=== PATIENT | female | born 1955 | race Caucasian/White ===

== ENCOUNTER 2018-08-27 11:45 | Inpatient (IN) | payer MEDICARE ==
[2018-08-27] VITALS (16 sets, daily range): BP systolic 129–179; BP diastolic 37–84; Ht 170.2 cm; Wt 93.0 kg
[~2018-08-27] VITALS: Ht 170.2 cm; Wt 93.0 kg
--- NOTE | ~2018-08-27 | HEMODYNAMI ---
PATIENT:BRANDEN GIORDANO MEDICAL RECORD: [id number] : 57 LOCATION:[facility] ADMISSION DATE: 08/27/18 Generatedon:08/27/201815:25 Patient name: BRANDEN GIORDANO Patient #: [id number] SSN: D OB: 1955 Date of study: 08/27/2018 Page: Of Hemodynamic Procedure Report Patient Data Patient Demographics Procedure consent was obtained First Name: BRANDEN Gender: Female Last Name: PASQUALE : 1955 Patient #: [id number] Age: 63 year(s) Race: Unknown Additional ID: [id number] Contact details Address: [address] [place] [address] State: [place] City: [place] Zip code: [address] Admission Admission Data Admission Date: 08/27/2018 Admission Time: 11:45 Insurance Payor: Medicare Height (in.): 66.93 BSA: 2.03 (m2) Height (cm.): 170 BMI: 31.83 (kg/m2) Weight (lbs.): 202.83 Weight (kg.): 92 Procedure Procedure Types Cath Procedure Diagnostic Procedure LHC LH w/Coronaries w/Grafts PCI Procedure AMI/SVG/WATER TREATMENT PLANT OPERATOR PTCA or Stent SVG-BMS/DENVER Initial Peripheral Cath Diagnostic Procedure Janitor Cleaner Peripheral Procedures Spjck-Raipurn-Zwj-Off Procedure Description Procedure Date Procedure Date: 08/27/2018 Procedure Start Time: 14:37 Procedure End Time: 15:17 Procedure Staff Name Function Shade Mathur MD Performing Physician Tabatha Keita RT Monitor Supriya Rangel RT Scrub Catherine Daniels RN Nurse Suzette Moore RT Monitor Procedure Data Cath Procedure Fluoroscopy Diagnostic fluoroscopy Total fluoroscopy Time: 7 time: 7 min min Diagnostic fluoroscopy Total fluoroscopy dose: dose: 1146 mGy 1146 mGy Contrast Material Contrast Material Type Amount (ml) Isovue 300 184 Entry Location Entry Primary Successful Side Size Upsize Upsize Entry Closure Bailey ccessful Closure Location (Fr) 1 (Fr) 2 (Fr) Remarks Device Remarks Femoral Right 5 Fr 6 Fr artery Short Femoral Right 6 Fr Manual vein Short Compression Estimated blood loss: 10 ml Diagnostic catheters Device Type Used For End Catheter Placement MULTIPACK JL 4.0 5Fr Procedure catheter MULTIPACK 3DRC 5Fr Procedure catheter MULTIPACK Pigtail 5 Fr Procedure catheter Procedure Complications No complications Procedure Medications Medication Administration Route Dosage 0.9% NaCl I.V. 100 ml/hr Oxygen etCO2 Nasal cannula 2 l/min Lidocaine 2% added to field 20 Heparin Flush Bag added to field 2 bags (1000units/500ml NS) Versed I.V. 2 mg Fentanyl I.V. 50 mcg Heparin Bolus I.V. 5000 units Atropine I.V. 1 mg Atropine I.V. 1 mg Integrilin (Bolus I.V. 8.5 ml 2mg/ml) Cardene I.C. 1750 mcg Integrilin Drip I.V. drip 15 ml/hr (75mg/100ml) Hemodynamics Rest BSA: 2.03 (m2) O2 Consumption: Estimated: 203.5 (ml/min) O2 Consumption indexed: Estimated:100.25 (ml/min/m) Heart Rate: 86 (bpm) Pressure Samples Time Site Value (mmHg) Purpose Heart Use Rate(bpm) 14:49 LV 182/93,11 Snapshot 72 Gradients Valve Time Site Site Mean SEP/DFP Peak To Heart Use 1 2 (mmHg) (sec/min) Peak Rate (mmHg) (bpm) Aortic 14:49 LV AO 69 Snapshots Pre Cath Intra NCS Post Cath Vital Signs Time Heart Resp SPO2 etCO2 NIBP (mmHg) Rhythm Pain Sedation Rate (ipm) (%) (mmHg) Status Level (bpm) 14:32:57 84 14 100 24.2 206/97(157) NSR 0 (11) 10(A) , No pain 14:37:29 63 15 97 13.6 180/85(135) NSR 0 (11) 9(A) , No pain 14:41:53 63 13 98 24.8 167/89(139) NSR 0 (11) 9(A) , No pain 14:46:24 65 15 98 12.1 180/83(141) NSR 0 (11) 9(A) , No pain 14:50:56 66 13 99 43.2 187/80(146) NSR 0 (11) 9(A) , No pain 14:55:28 65 14 99 37.9 184/82(143) NSR 0 (11) 9(A) , No pain 14:59:51 66 13 99 9.1 161/76(137) NSR 0 (11) 9(A) , No pain 15:04:19 67 13 99 17.4 167/78(128) NSR 0 (11) 9(A) , No pain 15:08:49 99 11 98 37.1 104/50(83) NSR 0 (11) 9(A) , No pain 15:13:40 91 11 98 25 143/78(121) NSR 0 (11) 9(A) , No pain 15:17:58 93 15 98 42.4 163/85(116) NSR 0 (11) 10(A) , No pain Medications Time Medication Route Dose Verified Delivered Reason Notes Effectiveness by by 14:30:13 0.9% NaCl I.V. 100 Shade Catherine used for ml/hr [facility] procedure MD HARRIS 14:30:20 Oxygen etCO2 2 Shade Catherine used for Nasal l/min [facility] procedure cannula MD HARRIS 14:30:26 Lidocaine 2% added 20ml Shade Laguerre for local to vial [facility] anesthetic field MD VALLADARES 14:30:31 Heparin Flush added 2 Shade Camposory used for Bag to bags [facility] procedure (1000units/500ml field MD VALLADARES NS) 14:34:22 Versed I.V. 2 mg Shade Catherine for sedation [facility] Os[facility] Daniels MD, RN 14:34:30 Fentanyl I.V. 50 Shade Catherine for sedation [facility] [place] Daniels MD, RN 14:53:39 Heparin Bolus I.V. 5000 Shade Catherine for verif ied units [facility] anticoagulation with Dr. MD HARRIS [place] 15:04:19 Cardene I.C. 1750 Shade Laguerre for mcg [facility] Osvaldo baez MD, MD 15:06:27 Atropine I.V. 1 mg Shade Catherine used for [place] Jeremiah alfaro MD, RN 15:07:28 Atropine I.V. 1 mg Shade Bazziyla used for [facility] procedure MD HARRIS 15:08:48 Integrilin I.V. 8.5 Shade Catherine for waste d (Bolus 2mg/ml) ml St Osvaldo Daniels anticoagulation 1.5mL MD HARRIS 15:21:26 Integrilin Drip I.V. 15 Shade Alexander for (75mg/100ml) drip ml/hr [facility] Osvaldo Daniels antiplatelet RN therapy Procedure Log Time Note 14::24 Diagnostic Cath Status : Elective 14:22:43 Supriya Rangel RT(R) sent for patient. Start room use. 14:22:44 Time tracking: Regular hours (M-F 7:00 - 5:00) 14:22:50 Plan of Care:Hemodynamics will remain stable., Cardiac rhythm will remain stable., Comfort level will be maintained., Respiratory function will remain adequate., Patient/ family verbilizes understanding of procedure., Procedure tolerated without complication., Recovers from procedure without complications.. 14:24:12 Patient received from Pre/Post Procedure Room to CCL 1 Alert and oriented. Tansferred to table in Supine position. 14:24:13 Warm blankets applied, and cristhian hugger turned on for patient comfort. 14:24:14 Correct patient and procedure confirmed by team. 14:24:15 Signed procedure consent form obtained from patient. 14:24:16 ECG and BP/O2 sat monitors applied to patient. 14:26:28 Patient Height : 66.93 inches 14:26:33 Patient Weight : 202.83 lbs 14:26:43 Insurance Payor : Medicare 14:27:02 Baseline sample Acquired. 14:27:02 Vital chart was started 14:30:13 0.9% NaCl 100 ml/hr I.V. was administered by Catherine Daniels RN; used for procedure; 14:30:20 Oxygen 2 l/min etCO2 Nasal cannula was administered by Catherine Daniels RN; used for procedure; 14:30:26 Lidocaine 2% 20ml vial added to field was administered by Shade Mathur MD; for local anesthetic; 14:30:31 Heparin Flush Bag (1000units/500ml NS) 2 bags added to field was administered by Shade Mathur MD; used for procedure; 14:31:20 Rhythm: sinus rhythm 14:31:22 Baseline sample Acquired. 14:31:24 Full Disclosure recording started 14::29 H&P Date Dictated: 08/27/2018 Within 30 days and on chart., H&P Addendum completed by physician on day of procedure. (MUST COMPLETE FOR ALL OUTPATIENTS). 14:31:31 Pre-procedure instructions explained to patient. 14:31:31 Pre-op teaching completed and patient verbalized understanding. 14:31:32 Family in waiting room. 14:31:33 Patient NPO since Midnight. 14:31:36 Is the patient allergic to Iodine/contrast media? No. 14:31:37 Was the patient premedicated? No 14:31:37 Is patient on blood thinner?Yes 14:31:40 ACC The patient was administered the following blood thiners within the last 24 hours: ACCPlavix 14:31:42 Patient diabetic? No. 14:31:44 Previous problem with sedation/anesthesia? No ? 14:31:47 Snore? Yes 14:31:48 Sleep apnea? Yes 14:31:49 Deviated septum? No 14:31:49 Opens mouth fully? Yes 14:31:50 Sticks out tongue? Yes 14:31:54 Airway obstruction? No ? 14:31:56 Dentures? No ? 14:32:10 Patient pain scale 0/10 ?. 14:32:16 IV patent on arrival in left antecubital with 0.9% NaCl at [facility]. 14:32:18 Lab results completed and on chart. 14:32:28 Bilateral groins area was prepped with chlora-prep and draped in sterile fashion 14:32:29 Alarms reviewed by R. N. 14:32:29 Sharps counted by scrub and verified by R.N. 14:33:49 Pre procedure: right dorsailis pedis pulse 1+ Palpable, but thready & weak; easily obliterated 14:33:51 Pre procedure: left dorsailis pedis pulse 1+ Palpable, but thready & weak; easily obliterated 14:33:53 Physician arrived 14:33:53 --------ALL STOP TIME OUT------ 14:33:54 Final Timeout: patient, procedure, and site verified with staff and physician. All members of the team are in agreement. 14:33:57 Bilateral groins site verified by team. 14:34:03 Maximum allowable Isovue 300 dose 94ml. Physician notified. (300ml for normal creatinines. For patients with creatinine of 1.7 or higher multiply weight x 5 divided by creatinine.) 14:34:07 Fire Safety Assessment: A--An alcohol-based skin anteseptic being used preoperatively., C--Open oxygen or nitrous oxide is being used., D--An ESU, laser, or fiber-optic light is being used. 14:34:11 Physical assessment completed. ASA score P 2 - A patient with mild systemic disease as per Shade Mathur MD. 14:34:14 Sedation plan: IV Moderate Sedation Medication:Versed, Fentanyl 14:34:22 Versed 2 mg I.V. was administered by Catherine Daniels RN; for sedation; 14:34:30 Fentanyl 50 mcg I.V. was administered by Catherine Daniels RN; for sedation; 14:34:44 Use device set Femoral Dx 14:34:46 ACIST Syringe (82277) opened to sterile field. 14:34:46 Bag Decanter (2002S) opened to sterile field. 14:34:47 Medline Cath Pack ([id number]) opened to sterile field. 14:34:47 DIAGNOSTIC WIRE .035 260cm J wire (048464) opened to sterile field. 14:34:59 ACIST Hand Control (98352) opened to sterile field. 14:34:59 ACIST Manifold (32552) opened to sterile field. 14:35:00 DIAGNOSTIC Multipack 5Fr catheter set ([id number]) opened to sterile field. 14:35:00 Tegaderm 4 x 4 (1626W) opened to sterile field. 14:35:01 SHEATH 5FR Combined Locks (FEA549) opened to sterile field. 14:37:46 Procedure started. 14:37:57 Local anesthetic to right femoral artery with Lidocaine 2% by Shade Mathur MD.INITIAL ACCESS ONLY 14:39:20 A 5 Fr sheath was inserted into the Right Femoral artery 14:43:51 A MULTIPACK JL 4.0 5Fr catheter was advanced over the wire and used for Procedure. 14:43:54 LCA angiography performed. 14:44:08 Catheter removed. 14:44:18 A MULTIPACK 3DRC 5Fr catheter was advanced over the wire and used for Procedure. 14:44:56 RCA angiography performed. 14:45:56 SVG to Circ angiography performed. 14:46:07 SVG to RCA angiography performed. 14:48:06 ORR to LAD angiography performed. 14:49:43 A MULTIPACK Pigtail 5 Fr catheter was advanced over the wire and used for Procedure. 14:49:55 EF : 55 % 14:50:02 LV gram done using COLLINS 14:50:04 Catheter removed. 14:50:59 Abdominal angiogram w/ runoff was performed. 14:51:03 Right leg runoff performed. 14:51:04 Left leg runoff performed. 14:52:14 Catheter removed. 14:52:39 GUIDE 6FR AR 1.0 catheter ([id number]) opened to sterile field. 14:52:48 INFLATOR Merit BasixCompak (FN2509) opened to sterile field. 14:53:10 SHEATH 6FR Combined Locks (SRU161) opened to sterile field. 14:53:19 Sheath upsized to a 6 Fr Short. 14:53:32 WHISPER 300cm guide wire ([id number]) opened to sterile field. 14:53:39 Heparin Bolus 5000 units I.V. was administered by Catherine Daniels RN; for anticoagulation; verified with Dr. Rodriguez 14:54:01 6 Fr AR1 guide catheter was inserted over the wire 14:54:09 Whis wire advanced. 15:00:03 Place stent Inflation Number: 1 A INTEGRITY OTW 3.0 X 18 stent ([id number]) was prepped and advanced across the Aorta Right -> Dist RCA. The stent was deployed at 14 SOULEYMANE for 0:24 (min:sec). 15:00:13 Stent catheter was removed intact over wire. 15:03:13 Place stent Inflation Number: 1 A INTEGRITY RX 3.5 x 18 stent ([id number]) was prepped and advanced across the Aorta Right -> Dist RCA1. The stent was deployed at 14 SOULEYMANE for 0:15 (min:sec). 15:04:19 Cardene 1750 mcg I.C. was administered by Shade Mathur MD; for vasodilation; 15:06:27 Atropine 1 mg I.V. was administered by Catherine Daniels RN; used for procedure; 15:07:28 Atropine 1 mg I.V. was administered by Catherine Daniels RN; used for procedure; 15:08:48 Integrilin (Bolus 2mg/ml) 8.5 ml I.V. was administered by Catherine Jeremiah RN; for anticoagulation; wasted 1.5mL 15:10:25 A 6 Fr Short sheath was inserted into the Right Femoral vein 15:10:39 SHEATH 6FR Combined Locks (CYJ243) opened to sterile field. 15:12:02 Inflation number: 2 The stent balloon was then re-inflated across the Aorta Right -> Dist RCA1 to 4 SOULEYMANE for 0:16 (min:sec). 15:14:51 EXOSEAL 6Fr (EX600) opened to sterile field. 15:15:01 Balloon removed over the wire. 15:15:02 Wire removed. 15:15:03 Guide catheter removed. 15:15:13 Procedure ended.(Physican Out) 15:15:25 Fluoroscopy time 07.00 minutes. 15:15:29 Fluoroscopy dose: 1146 mGy 15:15:29 Flurop Dose total: 1146 15:15:34 Contrast amount:Isovue 300 184ml. 15:15:36 Sharps counted by scrub and verified by R.N. 15:15:38 Insertion/operative site no bleeding no hematoma. 15:15:41 Post Procedure Pulses reassessed and unchanged 15:15:53 Estimated blood loss: 10 ml 15:15:56 Post procedure instruction explained to patient.Patient verbalizes understanding. 15:16:24 Sheath removed intact; hemostasis achieved with Manual Compression to the Right Femoral vein. 15:17:00 Procedure type changed to Cath procedure, Diagnostic procedure, LHC, LHC w/Coronaries w/Grafts, PCI procedure, AMI/SVG/WATER TREATMENT PLANT OPERATOR PTCA or Stent, SVG-BMS/DENVER Initial, Peripheral Cath Diagnostic Procedure, Janitor Cleaner Peripheral Procedures, Spsvg-Vuyezdq-Qxt-Off 15:17:02 Procedure and supply charges have been captured, reviewed, submitted and are correct. 15:17:23 Procedure Complication : No complications 15:17:26 Vital chart was stopped 15:17:27 See physician's report for complete and final results. 15:17:29 Report given to Pre/Post Procedure Room. 15:17:32 Patient transfered to Pre/Post Procedure Room with Stretcher. 15:17:34 Procedure ended. 15:17:34 Full Disclosure recording stopped 15:17:38 End room use (Document Last) 15:20:06 End room use (Document Last) 15:21:26 Integrilin Drip (75mg/100ml) 15 ml/hr I.V. drip was administered by Catherine Daniels RN; for antiplatelet therapy; Intervention Summary Intervention Notes Time ActionType Lesion and Equipment Action# Pressure Duration Attributes Used 15:00:03 Place stent Aorta Right INTEGRITY 1 14 00:24 -> Dist RCA OTW 3.0 X 18 stent ([id number]) 15:03:13 Place stent Aorta Right INTEGRITY RX 1 14 00:15 -> Dist 3.5 x 18 RCA1 stent ([id number]) 15:12:02 Reinflate Aorta Right INTEGRITY RX 2 4 00:16 stent -> Dist 3.5 x 18 balloon RCA1 stent ([id number]) Device Usage Item Name Manufacture Quantity Catalog Hospital Part Current Minimal Lot# / Number Charge Number Stock Stock Serial# Code ACIST Acist 1 30693 071899 718017 344438 20 Syringe Medical (67903) Systems Inc Bag Decanter Microtek 1 2001S 849235 44171 347944 5 () Medical Inc. Medline Cath Medline 1 [id number] 371079 41915 669646 5 Pack ([id number]) DIAGNOSTIC [facility] 1 210424 157056 139468 213293 30 WIRE .035 260cm J wire (694657) ACIST Hand Acist 1 70956 393413 984958 333361 5 Control Medical (19999) Systems Inc ACIST Acist 1 26377 588430 635303 917422 5 Manifold Medical (85588) Systems Inc DIAGNOSTIC Cardinal 1 PS6188 356643 38546 813207 30 Multipack Health 5Fr catheter set (EH0567) Tegaderm 4 x 3M 1 1626W 464922 233971 194759 5 4 (1626W) SHEATH 5FR Terumo 1 KDJ731 089263 853586 169248 5 Combined Locks (VWL482) MULTIPACK JL Cardinal 1 348381 5 4.0 5Fr Health catheter MULTIPACK Cardinal 1 016019 5 3DRC 5Fr Health catheter MULTIPACK Cardinal 1 505417 5 Pigtail 5 Fr Health catheter GUIDE 6FR AR Medtronic 1 [id number] 775024 38852 338528 1 1.0 catheter ([id number]) INFLATOR [employer] 1 HI2478 250332 677163 316449 15 [facility] [employer] BasixCompak (NB0340) SHEATH 6FR Terumo 2 HOP865 194166 322791 849155 40 Combined Locks (HQE406) WHISPER Bruno 1 [id number] 707258 154851 904130 5 300cm guide Vascular wire ([id number]) INTEGRITY Medtronic 1 [id number] 843666 976527 512007 2 [id number] OTW 3.0 X 18 stent ([id number]) INTEGRITY RX Medtronic 1 [id number] 103719 258449 089386 5 [id number] 3.5 x 18 stent ([id number]) EXOSEAL 6Fr Cardinal 1 EX600 117106 648207 187372 10 (EX600) Health Signature Audit [place] Stage Time Signature Unsigned Intra-Procedure 08/27/2018 Suzette Moore 3:25:15 PM RT(R) Signatures Monitor : Tabatha Keita RT Signature : Date : Time : Monitor : Suzette Moore Signature : RT Date : Time : [place] [id number] [place] [address]
[2018-08-27] MEDS ORDERED: ZOLOFT50 MG PO (12:26)
[2018-08-27] MEDS ORDERED: LYRICA225 MG PO (12:26)
[2018-08-27] MEDS ORDERED: PERCOCET 10-321 EAC1 PO (12:26)
[2018-08-27] MEDS ORDERED: PLAVIX75 MG PO (12:26)
[2018-08-27] MEDS ORDERED: MIRAPEX0.5 MG PO (12:27)
[2018-08-27] MEDS ORDERED: HYDROCHLOROTH12.5 M1 PO (12:27)
[2018-08-27] MEDS ORDERED: TOUJEO SOL300 UNIT/1 SC (12:27)
[2018-08-27] MEDS ORDERED: BAYER CHEWABLE81 MG PO (12:28)
[2018-08-27 12:43] LABS: BASOPHILS 0.2 % (0-2); EOSINOPHILS 4.2 % (0-7); HEMATOCRIT 36.9 % (36.0-48.0); HEMOGLOBIN 11.8 g/dL (12-16); IMMATURE GRANULOCYTES 0.1 % (0-5); LYMPHOCYTES 31.6 % (15-50); MCH 27.5 pg (26.0-34.0); MEAN PLATELET VOLUME 11.1 fL (7.4-10.4); MONOCYTES 6.8 % (2-11); NEUTROPHILS 57.1 % (40-80); PLATELET COUNT 171 10x3/uL (130-400); RBC 4.29 10x6/uL (4.00-5.40); RDW 13.5 % (11.5-14.5); WBC 8.7 10x3/uL (4.8-10.8)
[2018-08-27 12:52] LABS: ANION GAP 15.1 mmol/L (8-16); CALCIUM 9.1 mg/dL (8.5-10.1); CARBON DIOXIDE 26.4 mmol/L (21.0-32.0); CREATININE - SERUM 0.9 mg/dL (0.6-1.3); POTASSIUM - SERUM 4.5 mmol/L (3.5-5.1)
--- NOTE | 2018-08-27 17:16 | NUR ---
PT BROUGHT TO ROOM VIA BED. ALERT. RESPONDS APPROPRIATELY. RIGHT GROIN SITE SOFT. NO NOTED BLEEDING. DRESSING C,D,I. PALPABLE PULSES. PT DENIES PAIN. PIV TO LEFT AC WITH INTEGRILIN GTT AT 15ML/HR. EATING ICE CHIPS. BED GLEZ PROVIDED FOR URINATION. AND BROTHER IN LAW AT BEDSIDE. UPSET, SAYS NO-ONE CAME TO UPDATE HIM IN WAITING. DR ROCA. CALLED BACK AND SAID HE WOULD COME BY TO SEE FAMILY. HE SAID THEY SENT SOMEONE AT THE END OF THE CASE TO COME NOTIFY THE FAMILY AND THEY WERE UNABLE TO LOCATE ANYONE. FAMILY STATES THEY WERE IN THE WAITING AREA ENTIRE TIME.
--- NOTE | 2018-08-27 18:29 | NUR ---
PT SBP CONTINUOUSLY ELEVATED. NO MEDICATIONS FOR TREATMENT ON EMAR. HAVE PAGED DR CASTILLO. ALSO AWAITING HIM TO COME SPEAK WITH .
--- NOTE | 2018-08-27 18:34 | NUR ---
DR CASTILLO AT BEDSIDE AT THIS TIME SPEAKING WITH AND BROTHER IN LAW. CLONIDINE ORDERED FOR SBP ELEVATION
--- NOTE | 2018-08-27 19:15 | NUR ---
Received patient resting in bed with eyes open, assessment completed per flowsheet. Patient AO x4, calm and cooperative. S1/S2 noted NSR on telemetry with HR 77, rythmic and regular. Breathing is even/unlabored on room air with O2 sat 96%, lung sounds clear bilateral upper and mid with diminished lower. Abdomen is round/soft with bowel sounds active x4, non-tender. Patient ambulates to bathroom without assist, gait is upright/steady. Full ROM all extremities with all pulses palpable, skin warm/dry with cap refill < 3 sec. Denies pain or other needs at this time, see flowsheet for details. All VSS and will continue to monitor.
--- NOTE | 2018-08-27 21:00 | NUR ---
HS meds given without difficulty, no visitors at this time. Patient resting in bed with eyes closed, no s/s of distress and will continue to monitor.
--- NOTE | 2018-08-27 23:10 | NUR ---
Reassessment completed per flowsheet, no changes from previous assessment. R groin cath site soft to palpation with dressing CDI, no bleeding/drainage noted. All pulses palpable with cap refill < 3 sec, skin warm/dry. Denies pain or other needs at this time, see flowsheet for details. All VSS and will continue to monitor.
[2018-08-28] VITALS (11 sets, daily range): BP systolic 107–146; BP diastolic 38–87
--- NOTE | 2018-08-28 01:00 | NUR ---
Patient resting in bed with eyes closed, no s/s of distress at this time. Patient HR decreased to 58 bpm with no change in rhythm noted, all pulses palpable. R groin cath site dressing CDI, soft to palpation with no bleeding/drainage noted. All VSS and will continue to monitor.
--- NOTE | 2018-08-28 03:04 | NUR ---
Reassessment completed per flowsheet, no changes from previous assessment. S1/S2 noted Sinus Michi on telemetry with HR 59, rythmic and regular. R groin cath site dressing CDI, soft to palpation with no bleeding/drainage noted. All pulses palpable with cap refill < 3 sec, skin warm/dry. Denies pain or other needs at this time, see flowsheet for details. All VSS and will continue to monitor.
--- NOTE | 2018-08-28 05:00 | NUR ---
Patient sleeping in bed with eyes closed, no s/s of distress at this time. Patient Sinus Michi on telemetry with HR 55, rythmic and regular. No further needs at this time, all VSS and will continue to monitor.
--- NOTE | 2018-08-28 09:26 | NUR ---
0700 PT RECIEVED ALERT AND ORIENTED VSS DENIES PAIN AND ALL NEEDS, PIV L ARM SALINE LOCKED CONTINENT, R GROIN CATH SITE CDI 0830 DR CASTILLO IN UNIT, STATED OKAY TO [facility] 0915 CALLED OFFICE TO SET UP DC APPT
--- NOTE | 2018-08-28 10:32 | NUR ---
DC INSTRUCTIONS REVIEWED WITH PT AND FAMILYM, PIV REMOVED NO SIGNS OF BLEEDING
--- NOTE | 2018-08-28 10:45 | NUR ---
DC HOME WITH FAMILY, DENIES ALL QUESTIONS, ASSISTED TO CAR WITHOUT DIFFICULTY
--- NOTE | 2018-08-28 13:10 | OP ---
PATIENT NAME: BRANDEN GIORDANO MEDICAL RECORD: [id number] :57 LOCATION:[facility] D.CV02 ADMISSION DATE:08/28/18 SURGEON: ERICA CASTILLO MD DATE OF OPERATION: 08/27/2018 PROCEDURE: Left heart catheterization plus selective coronary angiography plus aortofemoral runoff, right femoral artery approach. CATHETERS: A 5-Eritrean sheath, 5/4 left and right Anant, 5/4 pig. The procedure was well tolerated. We proceeded immediately post aortofemoral runoff to do PTCA stenting of the saphenous vein graft to the right. Procedure finished. FINDINGS: Left ventriculography in 30-degree COLLINS view, normal wall motion and normal systolic function. CORONARY ANATOMY: LEFT MAIN: Left main is free of disease. LAD: Fills for a short period of time, is totally occluded. CIRCUMFLEX: Fills for a short period of time and totally occluded. RIGHT CORONARY ARTERY: Fills in its midportion, totally occluded. BYPASS GRAFT: 1. ORR to LAD is widely patent throughout its course. No evidence of post-anastomotic stenosis. 2. Saphenous vein graft to the circ OM system widely patent. 3. Saphenous vein graft to right coronary artery after the anastomosis has about a diffuse 80% stenosis. The mid portion of the graft itself has about 80% stenosis. The pigtail catheter was withdrawn to the level of the renal arteries. Aortofemoral runoff was performed of the abdominal aorta. This shows no evidence of aneurysm, no evidence of dissection. Minimal plaquing. Lower extremity anatomy: Right iliac system: Right iliac system internal and external, free of disease. Right femoral system: RIGHT superficial femoral distally has about 80% stenosis. This is fairly discrete with 2-vessel runoff distally. Left lower extremity arteriography: Left internal and external iliac free of significant disease. The left superficial femoral at its distal portion is basically subtotalled with a 2-vessel runoff distally. PLAN: Intervention to the saphenous vein graft to the right with intervention to the lower extremity based on symptomology. DESCRIPTION OF PROCEDURE: A 5-Eritrean sheath was exchanged for a 6-Eritrean sheath. AR1 guiding catheter provided good guide catheter support followed by 300 cm Whisper wire, which was placed across the distal vessel. The distal stent deployed was a 3.0 x 18 mm Integrity nondrug-eluting stent, which showed excellent resolution of diffuse 80% stenosis, no significant residual. Next, a 3.5 x 18 mm Integrity nondrug eluting stent was inflated up in the vein graft itself. This showed nice resolution of this lesion; however, the patient developed no refill phenomena secondary to a diseased bypass graft. The patient received IC Cardene as well as IC nitroglycerin and bolus of Integrilin. This OPERATIVE REPORT [id number] BRANDEN GIORDANO showed a reopening with nice deployment of both stents to both 80% lesion, no residual. However, given still some haziness in the proximal graft, will be kept overnight on Integrilin drip. Further recommendations based on the above. TRANSINT:[id number] Voice Confirmation ID: [id number] DOCUMENT ID: [id number] ERICA CASTILLO MD at 1310 CC: [id number] DICTATION DATE: 08/27/18 1528 VOIP NETWORK TECHNICIAN: 08/28/18 0025 DIS IN 08/28/18 [facility] [address] [place] [address]
== END 2018-08-28 10:51 | disposition home or self-care (01) | DRG 249 ==
LOC: D.CATH 11:45 → D.CVICU 16:32 → D.CATH 08-28 10:49 → D.CVICU 08-28 10:50
PROVIDERS: ADMIT Internal Medicine Interventional Cardiology; ATTEND Internal Medicine Interventional Cardiology
PROC: 02703EZ Dilation of Coronary Artery, One Artery with Two Intraluminal Devices, Percutaneous Approach (ICD-10-PCS; principal; 2018-08-28)
PROC: B2131ZZ Fluoroscopy of Multiple Coronary Artery Bypass Grafts using Low Osmolar Contrast (ICD-10-PCS; 2018-08-28)
DX: I25.110 Atherosclerotic heart disease of native coronary artery with unstable angina pectoris (principal); I70.219 Atherosclerosis of native arteries of extremities with intermittent claudication, unspecified extremity